=== PATIENT | female | born 1970 | race African-American/Black ===

== ENCOUNTER 2022-08-13 09:45 | Day surgery (SDC) | payer BC, OTHER ==
[2022-08-10 11:41] VITALS: BMI 29.2
[2022-08-13 10:05] VITALS: RESP 18
[2022-08-13] MEDS ORDERED: ETOMIDATE 20 MG/10 ML AMPUL IVPUSH ONE (10:36)
[2022-08-13 11:58] VITALS: BP 108/60; PULSE 66; TEMP 50
== END 2022-08-13 11:50 | disposition home or self-care (01) ==
LOC: FASU-ENDO 09:45
PROVIDERS: ATTEND Internal Medicine Gastroenterology
PROC: 0DJD8ZZ Inspection of Lower Intestinal Tract, Via Natural or Artificial Opening Endoscopic (ICD-10-PCS; principal; 2022-08-13 10:35)
DX: Z12.11 Encounter for screening for malignant neoplasm of colon (principal); K64.0 First degree hemorrhoids